=== PATIENT | female | born 1995 | race Two or more races ===

== ENCOUNTER 2017-04-22 14:52 | Emergency (ER) | payer MEDICAID ==
[~2017-04-22] VITALS: Ht 162.6 cm; Wt 68.0 kg
[2017-04-22 14:52] VITALS: BP 116/68
== END 2017-04-22 15:56 | disposition home or self-care (01) ==
LOC: ER 14:54
DX: D17.9 Benign lipomatous neoplasm, unspecified (principal)
CPT/HCPCS: A4606; Z7502; Z7610